=== PATIENT | female | born 1980 | race Caucasian/White ===

== ENCOUNTER 2020-05-18 10:55 | Inpatient (IN) | payer OTHER ==
[2020-05-18] MEDS: ELECTROLYTE-148 SOLN 1,000 ML IV SCH (11:30)
[2020-05-18] MEDS ORDERED: CITRIC ACID/SODIUM CITRATE 30 ML UNIT-DOSE CUP PO ONE (12:00)
[2020-05-18 12:07] LABS: BASO % 0.4 % (0-2.0); HEMATOCRIT 35.9 % (32.4-45.2); HEMOGLOBIN 12.4 GM/dL (10.7-15.3); LYMPH % 20.4 % (8-40); MCHC 34.7 g/dl (32.0-36.0); MEAN CELL VOLUME 86.4 fl (80-96); MONO % 5.9 % (3.8-10.2); NEUT % 72.3 % (42.8-82.8); PLATELET COUNT 148 K/MM3 (134-434); RBC 4.15 M/mm3 (3.60-5.2); RDW 13.2 % (11.6-15.6); WHITE BLOOD COUNT 6.6 K/mm3 (4.0-10.0)
[2020-05-18 12:15] LABS: INR 0.95 (0.83-1.09); PROTHROMBIN TIME (PATIENT) 11.5 SEC (9.7-13.0)
[2020-05-18 12:17] LABS: ACTIVATED PTT 27.9 SECONDS (25.2-36.5)
[2020-05-18 12:19] VITALS: BMI 26.2
[2020-05-18 12:26] LABS: POTASSIUM 3.9 mmol/L (3.5-5.1)
[2020-05-18 12:27] LABS: CALCIUM 8.7 mg/dL (8.5-10.1)
[2020-05-18 12:31] LABS: CREATININE 0.6 mg/dL (0.55-1.3)
[2020-05-18] MEDS ORDERED: SODIUM CHLORIDE 0.9% P/F 10 ML VIAL IJ ONE (17:25)
[2020-05-18] MEDS ORDERED: morphine SULFATE/PF 0.5 MG/ML (2cc Syringe - QUVA) ONE (17:25)
[2020-05-18] MEDS ORDERED: ceFAZolin SODIUM 1 GM VIAL ONE (17:25)
[2020-05-18] MEDS ORDERED: PHENYLEPHRINE HCL 10 MG/1 ML SINGLE DOSE VIAL ONE (17:25)
[2020-05-18] MEDS ORDERED: ePHEDrine SULFATE 50 MG/1 ML AMPULE ONE (17:26)
[2020-05-18] MEDS ORDERED: PROPOFOL 20 ML ONE (17:50)
[2020-05-18] MEDS ORDERED: SUCCINYLCHOLINE CHLORIDE 200 MG/10 ML SYRINGE ONE (17:50)
[2020-05-18] MEDS ORDERED: OXYTOCIN 10 UNITS/ML VIAL ONE ×3 (18:18→18:21)
[2020-05-18] MEDS ORDERED: KETOROLAC TROMETHAMINE 30 MG/1 ML VIAL ONE (18:19)
[2020-05-18] MEDS ORDERED: ONDANSETRON 4 MG/2 ML VIAL IVPUSH PRN (18:36)
[2020-05-18] MEDS ORDERED: morphine SULFATE/PF 0.5 MG/ML (2cc Syringe - QUVA) EP ONE (18:36)
[2020-05-18] MEDS ORDERED: ACETAMINOPHEN 325 MG TABLET (FP) PO PRN (18:36)
[2020-05-18] MEDS ORDERED: BENZOCAINE 28 GM HEMORRHOIDAL OINTMENT PR PRN (19:00)
[2020-05-18] MEDS ORDERED: METHYLERGONOVINE MALEATE 0.2 MG/1 ML AMP IM PRN (19:00)
[2020-05-18] MEDS ORDERED: IBUPROFEN 600 MG TABLET (FP) PO PRN (19:00)
[2020-05-18] MEDS ORDERED: IBUPROFEN 800 MG/8 ML IJ IVPB PRN (19:00)
[2020-05-18] MEDS ORDERED: oxyCODONE HCL 5 MG TABLET PO PRN ×2 (19:00)
[2020-05-18] MEDS ORDERED: WITCH HAZEL 50% (TUCKS) 40 PAD/JAR PAD TP PRN (19:00)
[2020-05-18] MEDS ORDERED: diphenhydrAMINE HCL 25 MG CAPSULE (FP) PO PRN (19:00)
[2020-05-18] MEDS ORDERED: OXYTOCIN 20 UNITS in 0.9% NS 1,000 ML IV SCH (19:00)
[2020-05-18] MEDS ORDERED: BENZOCAINE 20% 57 GM BOTTLE TP PRN (19:00)
[2020-05-18 19:02] LABS: CORD BASE EXCESS -0.5 mmol/L (0-2); CORD HCO3 24.9 mmHg (20-29); CORD PCO2 43.4 mmHg (30-78); CORD pH 7.376 (7.14-7.44)
[2020-05-18 19:02] LABS: CORD HCO3 25.7 mmHg (20-29); CORD PCO2 56.7 mmHg (30-78); CORD pH 7.275 (7.14-7.44)
[2020-05-18] MEDS: OXYTOCIN 20 UNITS in 0.9% NS 20 UNIT/1,000 ML INFUS.BAG IV SCH (19:08)
[2020-05-18] MEDS ORDERED: OXYTOCIN 20 UNITS in 0.9% NS 20 UNIT/1,000 ML INFUS.BAG IV ONE (19:11)
[2020-05-19] MEDS: CEFAZOLIN 1 GM/D5W 1 GM/50 ML BAG IVPB SCH ×2 (02:01→09:56)
[2020-05-19] MEDS: OXYTOCIN 20 UNITS in 0.9% NS 20 UNIT/1,000 ML INFUS.BAG IV SCH ×2 (04:01→20:25)
[2020-05-19 08:13] LABS: BASO % 0.2 % (0-2.0); EOS % 0.4 % (0-4.5); HEMATOCRIT 33.5 % (32.4-45.2); HEMOGLOBIN 11.3 GM/dL (10.7-15.3); MCH 29.1 pg (25.7-33.7); MCHC 33.9 g/dl (32.0-36.0); MEAN CELL VOLUME 85.8 fl (80-96); MEAN PLT VOLUME 9.7 fl (7.5-11.1); MONO % 5.6 % (3.8-10.2); NEUT % 85.8 % (42.8-82.8); PLATELET COUNT 119 K/MM3 (134-434); RDW 13.2 % (11.6-15.6)
[2020-05-19] MEDS: ENOXAPARIN NA (PORCINE) 40 MG/0.4 ML DISP.SYRIN SQ SCH (09:57)
[2020-05-19] MEDS ORDERED: DIPHTH,PERTUSS(ACELL),TET 0.5 ML DISP.SYRIN IM ONE (10:00)
[2020-05-19] MEDS: SIMETHICONE 80 MG TAB.CHEW (FP) PO PRN ×2 (12:21→17:54)
[2020-05-19] MEDS: IBUPROFEN 600 MG TABLET (FP) PO PRN ×2 (12:21→17:54)
[2020-05-19] MEDS: ACETAMINOPHEN 325 MG TABLET (FP) PO PRN ×2 (12:23→17:55)
[2020-05-19] MEDS: ELECTROLYTE-148 SOLN 1,000 ML IV SCH (15:43)
[2020-05-19] MEDS ORDERED: BISACODYL 10 MG SUPP.RECT PR PRN (19:00)
[2020-05-19] MEDS: DEXTROSE 5%-LACTATED RINGERS 1,000 ML IV SCH ×2 (20:24→20:25)
[2020-05-20] MEDS: ACETAMINOPHEN 325 MG TABLET (FP) PO PRN ×2 (02:16→10:40)
[2020-05-20] MEDS: IBUPROFEN 600 MG TABLET (FP) PO PRN ×2 (02:16→10:39)
[2020-05-20] MEDS: SIMETHICONE 80 MG TAB.CHEW (FP) PO PRN ×2 (02:16→10:39)
[2020-05-20] MEDS: ENOXAPARIN NA (PORCINE) 40 MG/0.4 ML DISP.SYRIN SQ SCH (10:39)
[2020-05-20 18:25] VITALS: BP 137/84; PULSE 63; TEMP 98.4
[2020-05-20] MEDS ORDERED: SENNOSIDES/DOCUSATE COMBO (SENNA PLUS) TABLET (UD) PO PRN (22:00)
== END 2020-05-20 20:05 | disposition home or self-care (01) | DRG 540 ==
LOC: JLDR 10:55 → J3W 21:30
PROVIDERS: ADMIT Obstetrics & Gynecology; ATTEND Obstetrics & Gynecology
PROC: 10D00Z1 Extraction of Products of Conception, Low, Open Approach (ICD-10-PCS; principal; 2020-05-18)
DX: O41.03X0 Oligohydramnios, third trimester, not applicable or unspecified (principal); O32.1XX0 Maternal care for breech presentation, not applicable or unspecified; Z3A.38 38 weeks gestation of pregnancy; Z37.0 Single live birth
CPT/HCPCS: 36415; 36600; 80048; 82803; 85025; 85610; 85730; 86780; 86850; 86900; 86901; 88307-TC; 90715; C9803; U0003

== ENCOUNTER 2022-11-27 16:10 | Emergency (ER) | payer OTHER ==
[2022-11-27 16:15] VITALS: BP 114/75; PULSE 58; RESP 18; TEMP 98; BMI 23.0
[2022-11-27] MEDS ORDERED: ACETAMINOPHEN 1000 MG/100 ML BAG IVPB ONE (17:14)
[2022-11-27] MEDS ORDERED: ACETAMINOPHEN INJECTION 100 ML IVPB ONE (17:46)
[2022-11-27 18:22] LABS: BASO % 0.6 % (0-2.0); EOS % 2.3 % (0-4.5); HEMATOCRIT 32.4 % (32.4-45.2); HEMOGLOBIN 9.8 GM/dL (10.7-15.3); LYMPH % 23.5 % (8-40); MCHC 30.2 g/dl (32.0-36.0); MEAN CELL VOLUME 56.3 fl (80-96); MEAN PLT VOLUME 8.6 fl (7.5-11.1); MONO % 5.6 % (3.8-10.2); PLATELET COUNT 283 10^3/uL (134-434); RBC 5.76 M/mm3 (3.60-5.2); RDW 27.8 % (11.6-15.6); WHITE BLOOD COUNT 7.1 K/mm3 (4.0-10.0)
[2022-11-27 18:23] LABS: HCG,QUALITATIVE URINE Positive
[2022-11-27 18:26] LABS: EPI CELLS 6 /uL (0-25.1); HYALINE CASTS 0 /uL (0-3.1); PH,URINE 5.5 (5.0-8.0); URINE APPEARANCE CLEAR; URINE BACTERIA 118 /uL (0-1359); URINE BILIRUBIN NEGATIVE (NEGATIVE); URINE COLOR YELLOW; URINE GLUCOSE (UA) NEGATIVE (NEGATIVE); URINE KETONE NEGATIVE (NEGATIVE); URINE LEUK ESTERASE TRACE (NEGATIVE); URINE NITRITE NEGATIVE (NEGATIVE); URINE PROTEIN NEGATIVE (NEGATIVE); URINE RBC 31 /uL (0-23.9); URINE UROBILINOGEN 0.2 mg/dL (0.2-1.0); URINE WBC 10 /uL (0-25.8)
[2022-11-27 18:28] LABS: INR 1.11 (0.83-1.09); PROTHROMBIN TIME (PATIENT) 12.9 SEC (9.7-13.0)
[2022-11-27 18:35] LABS: BLOOD UREA NITROGEN 10.6 mg/dL (7-18); CALCIUM 9.5 mg/dL (8.5-10.1)
[2022-11-27 18:36] LABS: ALBUMIN 4.3 g/dl (3.4-5.0)
[2022-11-27 18:38] LABS: CREATININE 0.7 mg/dL (0.55-1.3)
[2022-11-27 18:40] LABS: BILIRUBIN,TOTAL 0.3 mg/dL (0.2-1); TOT PROT 8.1 g/dl (6.4-8.2)
== END 2022-11-27 20:15 | disposition home or self-care (01) ==
LOC: JER 16:10
DX: O20.9 Hemorrhage in early pregnancy, unspecified (principal); O26.891 Other specified pregnancy related conditions, first trimester; R51.9 Headache, unspecified; Z3A.10 10 weeks gestation of pregnancy
CPT/HCPCS: 36415; 76817-TC; 80053; 81003; 84702; 84703; 85025; 85610; 86850; 86900; 86901; 87086; 99284-25

== ENCOUNTER 2022-11-29 06:49 | Emergency (ER) | payer OTHER ==
[2022-11-29 06:53] VITALS: BP 109/69; PULSE 65; RESP 18; TEMP 98; BMI 23.7
[2022-11-29] MEDS ORDERED: SODIUM CHLORIDE 1,000 ML IV STA (07:25)
[2022-11-29] MEDS ORDERED: ACETAMINOPHEN 1000 MG/100 ML BAG IVPB ONE (07:36)
[2022-11-29] MEDS ORDERED: ACETAMINOPHEN INJECTION 100 ML IVPB ONE (07:54)
[2022-11-29 09:12] LABS: HCG,QUALITATIVE URINE Positive
[2022-11-29 09:14] LABS: BASO % 0.4 % (0-2.0); EOS % 0.9 % (0-4.5); EPI CELLS 23 /uL (0-25.1); HEMATOCRIT 32.2 % (32.4-45.2); HEMOGLOBIN 9.5 GM/dL (10.7-15.3); HYALINE CASTS 1 /uL (0-3.1); LYMPH % 11.1 % (8-40); MCHC 29.4 g/dl (32.0-36.0); MEAN CELL VOLUME 57.9 fl (80-96); MEAN PLT VOLUME 9.7 fl (7.5-11.1); MONO % 6.7 % (3.8-10.2); NEUT % 80.9 % (42.8-82.8); PH,URINE 5.5 (5.0-8.0); PLATELET COUNT 261 10^3/uL (134-434); RBC 5.57 M/mm3 (3.60-5.2); RDW 26.4 % (11.6-15.6); URINE APPEARANCE CLEAR; URINE BACTERIA 256 /uL (0-1359); URINE BILIRUBIN NEGATIVE (NEGATIVE); URINE COLOR YELLOW; URINE GLUCOSE (UA) NEGATIVE (NEGATIVE); URINE KETONE TRACE (NEGATIVE); URINE LEUK ESTERASE NEGATIVE (NEGATIVE); URINE NITRITE NEGATIVE (NEGATIVE); URINE PROTEIN TRACE (NEGATIVE); URINE RBC 713 /uL (0-23.9); URINE WBC 23 /uL (0-25.8); WHITE BLOOD COUNT 9.8 K/mm3 (4.0-10.0)
[2022-11-29 09:23] LABS: POTASSIUM 4.3 mmol/L (3.5-5.1)
[2022-11-29 09:27] LABS: BLOOD UREA NITROGEN 14.9 mg/dL (7-18); CALCIUM 9.4 mg/dL (8.5-10.1)
[2022-11-29 09:30] LABS: CREATININE 0.7 mg/dL (0.55-1.3)
[2022-11-29] MEDS ORDERED: KETOROLAC TROMETHAMINE 30 MG/1 ML VIAL ONE (09:37)
== END 2022-11-29 12:25 | disposition home or self-care (01) ==
LOC: JER 06:49
PROC: 3E033NZ Introduction of Analgesics, Hypnotics, Sedatives into Peripheral Vein, Percutaneous Approach (ICD-10-PCS; principal; 2022-11-29)
PROC: 3E0337Z Introduction of Electrolytic and Water Balance Substance into Peripheral Vein, Percutaneous Approach (ICD-10-PCS; 2022-11-29)
DX: O03.9 Complete or unspecified spontaneous abortion without complication (principal); O26.891 Other specified pregnancy related conditions, first trimester; R10.30 Lower abdominal pain, unspecified; Z3A.10 10 weeks gestation of pregnancy
CPT/HCPCS: 36415; 76817-TC; 80048; 81003; 84702; 84703; 85025; 87086; 99284-25

== ENCOUNTER 2023-11-27 12:15 | Inpatient (IN) | payer OTHER ==
[2023-11-27] MEDS: ELECTROLYTE-148 SOLN 1,000 ML IV SCH (12:25)
[2023-11-27] MEDS ORDERED: morphine SULFATE/PF 1 MG/2 ML (2cc Syringe - QUVA) ONE (13:47)
[2023-11-27] MEDS ORDERED: FENTANYL CITRATE/PF 50 MCG/ML VIAL ONE (13:47)
[2023-11-27] MEDS ORDERED: DEXAMETHASONE SOD PHOSPHATE 4 MG/1 ML VIAL ONE (13:55)
[2023-11-27] MEDS ORDERED: ONDANSETRON 4 MG/2 ML VIAL ONE (13:55)
[2023-11-27] MEDS ORDERED: OXYTOCIN 10 UNITS/ML VIAL ONE (14:02)
[2023-11-27 14:28] VITALS: BMI 27.1
[2023-11-27] MEDS ORDERED: METHYLERGONOVINE MALEATE 0.2 MG/1 ML AMP IM PRN (14:37)
[2023-11-27] MEDS ORDERED: ceFAZolin SODIUM 1 GM VIAL ONE (14:39)
[2023-11-27] MEDS: OXYTOCIN 20 UNITS in 0.9% NS 20 UNIT/1,000 ML INFUS.BAG IV SCH (14:50)
[2023-11-27] MEDS ORDERED: ONDANSETRON 4 MG/2 ML VIAL IVPUSH PRN (14:51)
[2023-11-27] MEDS ORDERED: IBUPROFEN 800 MG/8 ML IJ IVPB ONE (16:44)
[2023-11-27] MEDS: IBUPROFEN 800 MG/8 ML IJ IVPB PRN (16:45)
[2023-11-27] MEDS: FERROUS SO4 325 MG TABLET (FP) PO SCH (17:17)
[2023-11-27 20:13] VITALS: RESP 18
[2023-11-28] MEDS ORDERED: oxyCODONE HCL 5 MG TABLET PO PRN (02:37)
[2023-11-28] MEDS: SIMETHICONE 80 MG TAB.CHEW (FP) PO PRN (03:28)
[2023-11-28] MEDS: IBUPROFEN 600 MG TABLET (FP) PO PRN (03:28)
[2023-11-28 07:21] LABS: BASO % 0.2 % (0-2.0); EOS % 0.4 % (0-4.5); HEMOGLOBIN 9.1 GM/dL (10.7-15.3); LYMPH % 11.4 % (8-40); MCH 30.1 pg (25.7-33.7); MCHC 35.1 g/dl (32.0-36.0); MEAN CELL VOLUME 85.9 fl (80-96); MONO % 5.3 % (3.8-10.2); NEUT % 82.7 % (42.8-82.8); PLATELET COUNT 121 10^3/uL (134-434); RBC 3.03 M/mm3 (3.60-5.2); RDW 13.4 % (11.6-15.6)
[2023-11-28] MEDS: FERROUS SO4 325 MG TABLET (FP) PO SCH (09:20)
[2023-11-28] MEDS: PRENATAL VITAMINS W/ FOLIC ACID TABLET (FP) PO SCH (09:20)
[2023-11-28] MEDS: ACETAMINOPHEN 325 MG TABLET (FP) PO PRN (09:20)
[2023-11-28 14:25] LABS: POC NITRAZINE POS
[2023-11-28] MEDS ORDERED: BISACODYL 10 MG SUPP.RECT RC PRN (14:37)
[2023-11-30 06:11] LABS: BASO % 0.3 % (0-2.0); EOS % 2.2 % (0-4.5); HEMATOCRIT 25.9 % (32.4-45.2); LYMPH % 15.7 % (8-40); MCH 30.1 pg (25.7-33.7); MCHC 34.7 g/dl (32.0-36.0); MEAN CELL VOLUME 86.5 fl (80-96); MONO % 5.8 % (3.8-10.2); PLATELET COUNT 155 10^3/uL (134-434); RDW 13.3 % (11.6-15.6); WHITE BLOOD COUNT 7.6 K/mm3 (4.0-10.0)
[2023-11-30 10:59] VITALS: BP 119/86; PULSE 77; TEMP 98.1
== END 2023-11-30 13:15 | disposition home or self-care (01) | DRG 540 ==
LOC: JLDR 12:15 → J3W 17:11
PROVIDERS: ADMIT Obstetrics & Gynecology; ATTEND Obstetrics & Gynecology
PROC: 10D00Z1 Extraction of Products of Conception, Low, Open Approach (ICD-10-PCS; principal; 2023-11-27)
DX: O48.0 Post-term pregnancy (principal); Z3A.40 40 weeks gestation of pregnancy; P03.89 Newborn affected by other specified complications of labor and delivery; Z37.0 Single live birth
CPT/HCPCS: 36415; 59025; 80048; 83986-QW; 85025; 85610; 85730; 86780; 86850; 86900; 86901; 88307-TC

== ENCOUNTER 2024-12-19 08:00 | Inpatient (IN) | payer OTHER ==
[2024-12-22 08:16] LABS: ABSOLUTE IMMATURE GRANULOCYTES 0.06 x10^3/uL (0.0-0.031); BASOPHILS # 0.04 x10^3/uL (0.01-0.08); EOSINOPHIL % 2.3 % (0.7-5.8); EOSINOPHILS # 0.14 x10^3/uL (0.04-0.36); MCHC 33.0 g/dl (32.2-35.5); MEAN CELL VOLUME 87.0 fl (79.4-94.8); MEAN PLT VOLUME 11.7 fl (9.4-12.3); MONOCYTE # 0.48 x10^3/uL (0.24-0.86); MONOCYTE % 7.8 % (4.7-12.5); RDW 12.8 % (12.2-17.1)
[2024-12-22] MEDS: ELECTROLYTE-148 SOLN 500 ML IV ONE (08:45)
[2024-12-22 08:46] LABS: CO2 23 mmol/L (21-32); GLUCOSE,RANDOM 76 mg/dL (74-106); INR 1.01 (0.83-1.09); PROTHROMBIN TIME (PATIENT) 11.0 SEC (9.7-13.0)
[2024-12-22 08:49] LABS: ACTIVATED PTT 26.5 SECONDS (25.2-36.5)
[2024-12-22 08:50] LABS: CREATININE 0.5 mg/dL (0.55-1.3)
[2024-12-22] MEDS ORDERED: OXYTOCIN 30 UNITS in 0.9% NS 30 UNIT/500 ML INFUS.BAG IVPB ONE (09:12)
[2024-12-22] MEDS ORDERED: morphine SULFATE/PF 1 MG/2 ML (2cc Syringe - QUVA) ONE (09:16)
[2024-12-22] MEDS ORDERED: FENTANYL CITRATE/PF 50 MCG/ML VIAL ONE (09:16)
[2024-12-22] MEDS ORDERED: KETOROLAC TROMETHAMINE 30 MG/1 ML VIAL ONE (09:19)
[2024-12-22] MEDS ORDERED: ONDANSETRON 4 MG/2 ML VIAL ONE (09:19)
[2024-12-22] MEDS ORDERED: DEXAMETHASONE SOD PHOSPHATE 4 MG/1 ML VIAL ONE (09:19)
[2024-12-22] MEDS ORDERED: ACETAMINOPHEN 325 MG TABLET (FP) PO PRN (09:26)
[2024-12-22] MEDS ORDERED: IBUPROFEN 600 MG TABLET (FP) PO PRN (09:26)
[2024-12-22] MEDS ORDERED: ONDANSETRON 4 MG/2 ML VIAL IVPUSH PRN (09:26)
[2024-12-22] MEDS: CITRIC ACID/SODIUM CITRATE 30 ML UNIT-DOSE CUP PO ONE (09:30)
[2024-12-22] MEDS ORDERED: METHYLERGONOVINE MALEATE 0.2 MG/1 ML AMP IM PRN (10:07)
[2024-12-22] MEDS ORDERED: OXYTOCIN 10 UNITS/ML VIAL ONE (10:28)
[2024-12-22 11:56] VITALS: BMI 28.5
[2024-12-22] MEDS ORDERED: ACETAMINOPHEN INJECTION 100 ML ONE (12:45)
[2024-12-22] MEDS: OXYTOCIN 20 UNITS in 0.9% NS 20 UNIT/1,000 ML INFUS.BAG IV SCH (12:45)
[2024-12-22] MEDS: ACETAMINOPHEN 1000 MG/100 ML BAG IVPB PRN (12:45)
[2024-12-22] MEDS ORDERED: OXYTOCIN 20 UNITS in 0.9% NS 20 UNIT/1,000 ML INFUS.BAG IV ONE (12:45)
[2024-12-22] MEDS: IBUPROFEN 800 MG/8 ML IJ IVPB PRN (17:14)
[2024-12-23] MEDS: SIMETHICONE 80 MG TAB.CHEW (FP) PO PRN (03:16)
[2024-12-23 06:08] VITALS: RESP 18
[2024-12-23 07:31] LABS: ABSOLUTE IMMATURE GRANULOCYTES 0.05 x10^3/uL (0.0-0.031); BASOPHILS # 0.02 x10^3/uL (0.01-0.08); EOSINOPHIL % 1.1 % (0.7-5.8); EOSINOPHILS # 0.12 x10^3/uL (0.04-0.36); MCHC 33.0 g/dl (32.2-35.5); MEAN CELL VOLUME 86.3 fl (79.4-94.8); MEAN PLT VOLUME 12.0 fl (9.4-12.3); MONOCYTE # 0.70 x10^3/uL (0.24-0.86); MONOCYTE % 6.4 % (4.7-12.5); RDW 12.8 % (12.2-17.1)
[2024-12-23] MEDS ORDERED: BISACODYL 10 MG SUPP.RECT RC PRN (10:07)
[2024-12-23] MEDS: DIPHTH,PERTUSS(ACELL),TET 0.5 ML DISP.SYRIN IM ONE (10:42)
[2024-12-23] MEDS: IBUPROFEN 600 MG TABLET (FP) PO PRN (14:04)
[2024-12-24] MEDS: ACETAMINOPHEN 325 MG TABLET (FP) PO PRN (10:25)
[2024-12-24] MEDS: FERROUS SO4 325 MG TABLET (FP) PO ONE (10:25)
[2024-12-25 07:25] LABS: ABSOLUTE IMMATURE GRANULOCYTES 0.04 x10^3/uL (0.0-0.031); BASOPHILS # 0.02 x10^3/uL (0.01-0.08); EOSINOPHIL % 3.0 % (0.7-5.8); EOSINOPHILS # 0.19 x10^3/uL (0.04-0.36); MCHC 33.1 g/dl (32.2-35.5); MEAN CELL VOLUME 87.1 fl (79.4-94.8); MEAN PLT VOLUME 11.5 fl (9.4-12.3); MONOCYTE # 0.35 x10^3/uL (0.24-0.86); MONOCYTE % 5.6 % (4.7-12.5); RDW 12.9 % (12.2-17.1)
[2024-12-25 09:43] VITALS: BP 111/63; PULSE 70; TEMP 97.9
== END 2024-12-25 13:45 | disposition home or self-care (01) | DRG 540 ==
LOC: JLDR 12-22 07:35 → J3W 12-22 13:25
PROVIDERS: ADMIT Student in an Organized Health Care Education/Training Program; ATTEND Student in an Organized Health Care Education/Training Program
PROC: 10D00Z1 Extraction of Products of Conception, Low, Open Approach (ICD-10-PCS; principal; 2024-12-22)
DX: O34.211 Maternal care for low transverse scar from previous cesarean delivery (principal); N85.8 Other specified noninflammatory disorders of uterus; Z3A.39 39 weeks gestation of pregnancy; Z37.0 Single live birth
CPT/HCPCS: 36415; 59409; 80048; 85025; 85610; 85730; 86780; 86850; 86900; 86901; 88307-TC; 90715; 94010